=== PATIENT | female | born 2000 | race Hispanic/Latino ===

== ENCOUNTER 2022-11-28 12:01 | Inpatient (IN) | payer OTHER ==
[~2022-11-28] VITALS: Ht 162.6 cm; Wt 64.8 kg
[~2022-11-28 12:01] MED LIST: NICOTINE 21MG/24HR 1 EA TRANSDERMAL TD SCH
[2022-11-28 12:48] LABS: HEMATOCRIT 38.1 % (36.0-47.0); HEMOGLOBIN 12.3 g/dl (12.0-15.5); MEAN CORPUSCULAR HGB CONC 32.3 g/dl (32.0-36.5); MEAN CORPUSCULAR VOLUME 89.9 fl (80.0-96.0); PLATELET COUNT, AUTOMATED 357 10^3/uL (150-450); RED BLOOD COUNT 4.24 10^6/uL (4.00-5.40); WHITE BLOOD COUNT 14.3 10^3/uL (4.0-10.0)
[2022-11-28 13:19] LABS: AMPHETAMINES LEVEL URINE NEGATIVE (NEGATIVE); BARBITURATES URINE NEGATIVE (NEGATIVE); BENZODIAZEPINES URINE NEGATIVE (NEGATIVE); CANNABINOIDS URINE NEGATIVE (NEGATIVE); COCAINE METABOLITE URINE NEGATIVE (NEGATIVE); METHADONE URINE NEGATIVE (NEGATIVE); OPIATES URINE NEGATIVE (NEGATIVE); PHENCYCLIDINE URINE NEGATIVE (NEGATIVE)
[2022-11-28 13:21] LABS: ETHYL ALCOHOL (ETHANOL) 0.004 % (0.000-0.010)
[2022-11-28 13:23] LABS: ALKALINE PHOSPHATASE 69 U/L (46-116); ALT/SGPT < 9 U/L (7.0-40); AST/SGOT 19 U/L (<34); BILIRUBIN,DIRECT 0.2 MG/DL (<0.4); BILIRUBIN,TOTAL 0.6 MG/DL (0.3-1.2); BLOOD UREA NITROGEN 6 MG/DL (9-23); CALCIUM LEVEL 8.8 MG/DL (8.5-10.1); CARBON DIOXIDE LEVEL 25 MMOL/L (20-31); CHLORIDE LEVEL 102 MMOL/L (98-107); CREATININE FOR GFR 0.59 MG/DL (0.55-1.30); GLOMERULAR FILTRATION RATE > 60.0 (>60); GLUCOSE, FASTING 78 MG/DL (60-100); HCG, SERUM QUALITATIVE NEGATIVE (NEGATIVE); POTASSIUM SERUM 3.6 MMOL/L (3.5-5.1); SALICYLATE LEVEL < 3.0 MG/DL (<30); SODIUM LEVEL 137 MMOL/L (136-145); TOTAL PROTEIN 7.7 G/DL (5.7-8.2)
[2022-11-28 13:24] LABS: ACETAMINOPHEN LEVEL < 2.0 UG/ML (10.0-20.0)
[2022-11-28 13:25] LABS: THYROID STIMULATING HORMONE 1.003 uIU/ML (0.55-4.78)
[2022-11-28] MEDS ORDERED: MOM 30ML SUSPENSION UDC PO PRN (14:45)
[2022-11-28] MEDS ORDERED: hydrOXYzine 50 MG TAB PO PRN (14:45)
[2022-11-28] MEDS ORDERED: MAALOX 30 ML SUSP *UDC PO PRN (14:45)
[2022-11-28 15:09] VITALS: BP 112/73
[2022-11-28 16:18] VITALS: BP 143/80
[2022-11-29 06:18] VITALS: BP 105/66
[2022-11-29] MEDS ORDERED: HOME MED LIST COMPLETE! XX SCH (12:10)
[2022-11-29] MEDS: SERTRALINE HCL 25 MG TABLET PO SCH (12:49)
[2022-11-29 13:30] LABS: BASO # 0.1 10^3/uL (0.0-0.2); BASO % 0.4 % (0.0-1.0); EOS # 0.2 10^3/uL (0.0-0.5); EOS % 1.2 % (0.0-3.0); HEMATOCRIT 39.6 % (36.0-47.0); HEMOGLOBIN 12.7 g/dl (12.0-15.5); LYMPH # 2.9 10^3/uL (1.5-5.0); LYMPH % 22.2 % (24.0-44.0); MEAN CORPUSCULAR HEMOGLOBIN 28.7 pg (27.0-33.0); MEAN CORPUSCULAR HGB CONC 32.1 g/dl (32.0-36.5); MEAN CORPUSCULAR VOLUME 89.4 fl (80.0-96.0); MONO # 0.6 10^3/uL (0.0-0.8); MONO % 4.2 % (2.0-8.0); NEUTROPHILS # 9.4 10^3/uL (1.5-8.5); NEUTROPHILS % 71.4 % (36.0-66.0); PLATELET COUNT, AUTOMATED 366 10^3/uL (150-450); RED BLOOD COUNT 4.43 10^6/uL (4.00-5.40); WHITE BLOOD COUNT 13.2 10^3/uL (4.0-10.0)
[2022-11-29 19:30] VITALS: BP 116/79
[2022-11-29] MEDS: PRAZOSIN 1 MG CAP PO SCH (20:33)
[2022-11-30 06:07] VITALS: BP 118/59
[2022-11-30] MEDS: SERTRALINE HCL 25 MG TABLET PO SCH (08:06)
[2022-11-30 16:38] VITALS: BP 119/71
[2022-11-30] MEDS ORDERED: guaiFENesin ER 600 MG TAB PO PRN (20:10)
[2022-11-30] MEDS: traZODone 50 MG TAB PO PRN (21:04)
[2022-11-30] MEDS: PRAZOSIN 1 MG CAP PO SCH (21:04)
[2022-12-01 06:15] VITALS: BP 97/52
[2022-12-01] MEDS: SERTRALINE HCL 25 MG TABLET PO SCH (07:51)
[2022-12-01 16:20] VITALS: BP 130/74
[2022-12-01] MEDS: PRAZOSIN 1 MG CAP PO SCH (20:39)
[2022-12-01] MEDS: traZODone 50 MG TAB PO PRN (20:39)
[2022-12-02 06:30] VITALS: BP 114/65
[2022-12-02] MEDS: SERTRALINE HCL 25 MG TABLET PO SCH (08:05)
[2022-12-02 16:36] VITALS: BP 118/70
[2022-12-02] MEDS: traZODone 50 MG TAB PO PRN (20:27)
[2022-12-02 20:28] VITALS: BP 124/84
[2022-12-02] MEDS: PRAZOSIN 1 MG CAP PO SCH (20:28)
[2022-12-03 06:18] VITALS: BP 110/67
[2022-12-03] MEDS: SERTRALINE HCL 25 MG TABLET PO SCH (08:04)
[2022-12-03] MEDS ORDERED: SERT25TA21 PO (11:41)
[2022-12-03] MEDS ORDERED: MINI1CAP PO (11:41)
[2022-12-03] MEDS ORDERED: TRAZ-252 PO (11:41)
== END 2022-12-03 14:01 | disposition home or self-care (01) | DRG 885 ==
LOC: M ED 12:01 → EDBD 12:01 → M ED INP 14:43 → M PSY 15:28
PROVIDERS: ADMIT Student in an Organized Health Care Education/Training Program; ATTEND Student in an Organized Health Care Education/Training Program
DX: F32.89 Other specified depressive episodes (principal); R45.851 Suicidal ideations; F43.20 Adjustment disorder, unspecified; F17.200 Nicotine dependence, unspecified, uncomplicated; Z91.410 Personal history of adult physical and sexual abuse; Z91.51 Personal history of suicidal behavior; Z83.3 Family history of diabetes mellitus; Z20.822 Contact with and (suspected) exposure to COVID-19; Z56.6 Other physical and mental strain related to work